=== PATIENT | male | born 1990 | race Caucasian/White ===

== ENCOUNTER 2022-05-29 21:23 | Emergency (ER) | payer SELFPAY ==
[~2022-05-29] VITALS: Ht 172.7 cm; Wt 72.0 kg
[2022-05-29 21:32] VITALS: BP 104/84
[2022-05-29] MEDS ORDERED: BACITRACIN ZINC OINT UDPKT TOP ONE (22:30)
[2022-05-29] MEDS ORDERED: LIDOCAINE HCL/EPINEPHRINE 1%-EPI 1:100,000 20 ML VIAL INFIL ONE (22:30)
[2022-05-29] MEDS ORDERED: TETANUS, DIPHTHERIA, PERTUSSIS VAC/PF 0.5ML (>10YR OLD) IM ONE (22:30)
[2022-05-29] MEDS ORDERED: ACETAMINOPHEN 325MG TABLET PO ONE (22:30)
[2022-05-29] MEDS ORDERED: LIDOCAINE HCL/EPINEPHRINE 1%-EPI 1:100,000 10 ML VIAL INFIL NR (23:00)
== END 2022-05-30 01:51 | disposition home or self-care (01) ==
LOC: ER 21:23
DX: S01.81XA Laceration without foreign body of other part of head, initial encounter (principal); X58.XXXA Exposure to other specified factors, initial encounter; Y93.89 Activity, other specified; Y92.89 Other specified places as the place of occurrence of the external cause; Y99.8 Other external cause status; F10.129 Alcohol abuse with intoxication, unspecified; Y90.0 Blood alcohol level of less than 20 mg/100 ml
CPT/HCPCS: 12002; 70450; 72125; 90471; 90715; 99284; J3490